=== PATIENT | female | born 1980 | race Two or more races ===

== ENCOUNTER 2022-02-11 12:14 | Emergency (ER) | payer OTHER ==
[~2022-02-11] VITALS: Ht 167.6 cm; Wt 83.9 kg
[2022-02-11] MEDS ORDERED: LEVOXYL175 MCG PO (12:38)
[2022-02-11] MEDS ORDERED: ZITHROMAX500 MG PO (17:26)
[2022-02-11] MEDS ORDERED: BENZONATATE200 M1 PO (17:28)
[2022-02-11] MEDS ORDERED: PROAIR RESPICL90 MCG IH (17:28)
== END 2022-02-11 18:06 | disposition home or self-care (01) ==
LOC: ER 12:14
DX: J20.9 Acute bronchitis, unspecified (principal); Z20.822 Contact with and (suspected) exposure to COVID-19

== ENCOUNTER → 2022-09-27 | Emergency (ER) | payer OTHER ==
[~2022-09-27] VITALS: Ht 167.6 cm; Wt 83.0 kg
[~2022-09-27] MED LIST: BENZONATATE200 M1 PO; LEVOXYL175 MCG PO; PROAIR RESPICL90 MCG IH; ZITHROMAX500 MG PO
== END | disposition home or self-care (01) ==
LOC: ER 23:35
DX: J06.9 Acute upper respiratory infection, unspecified (principal); Z20.822 Contact with and (suspected) exposure to COVID-19

== ENCOUNTER 2022-09-30 17:28 | Emergency (ER) | payer OTHER ==
[~2022-09-30] VITALS: Ht 167.6 cm; Wt 82.6 kg
== END 2022-09-30 19:44 | disposition home or self-care (01) ==
LOC: ER 17:28
DX: J06.9 Acute upper respiratory infection, unspecified (principal); E03.9 Hypothyroidism, unspecified

== ENCOUNTER 2022-12-31 09:38 | Emergency (ER) | payer OTHER ==
[~2022-12-31] VITALS: Ht 167.6 cm; Wt 82.6 kg
[2022-12-31] MEDS ORDERED: FLONASE ALLERG9.9 ML (10:16)
[2022-12-31 11:50] LABS: HEMATOCRIT 30.7 % (36.0-45.00); HEMOGLOBIN 9.5 g/dL (12.0-15.00); MEAN CORPUSCULAR HEMOGLOBIN 19.2 pg (27.00-32.0); MEAN CORPUSCULAR HGB CONC 30.9 g/dl (32.0-36.0); PLATELET COUNT 378 K/uL (150-450); RED BLOOD COUNT 4.95 M/uL (4.00-6.00); RED CELL DISTRIBUTION WIDTH 19.7 % (11.5-14.5)
[2022-12-31] MEDS ORDERED: TUSNEL LIQUID178 ML PO (12:36)
[2022-12-31] MEDS ORDERED: OSEL75CA PO (12:36)
[2022-12-31] MEDS ORDERED: DOLOGEN CAPLET1 EACH PO (12:36)
== END 2022-12-31 12:47 | disposition home or self-care (01) ==
LOC: ER 09:38
PROVIDERS: General Practice
DX: J09.X2 Influenza due to identified novel influenza A virus with other respiratory manifestations (principal)

== ENCOUNTER 2024-05-25 22:14 | Inpatient (IN) | payer OTHER ==
[~2024-05-25] VITALS: Ht 167.6 cm; Wt 85.7 kg
[~2024-05-25 22:14] MED LIST changes: +DOLOGEN CAPLET1 EACH PO; +FLONASE ALLERG9.9 ML; +OSEL75CA PO; +TUSNEL LIQUID178 ML PO
--- NOTE | 2024-05-25 22:33 | NUR ---
SE RECIBE PTE ALERTA Y ORIENTADA X3. REFIERE VENIR POR HGB EN 6.0. SE MIDE SV Y SE UBICA
--- NOTE | 2024-05-26 00:23 | NUR ---
PTE ALERTA Y ORIENTADA X3, SE EDUCA SOBRE TX MEDICO Y REFIERE ACEPTAR. SE EJECUTAN ORDENES MEDICAS EN HAMM TOTALIDAD.
[2024-05-26 00:35] LABS: ALBUMIN 3.6 gm/dL (3.4-5.0); BILIRUBIN TOTAL 0.26 mg/dL (0.3-1.2); CALCIUM 8.5 mg/dL (8.5-10.1); CREATININE SERUM 0.87 mg/dL (0.55-1.02); GFR 70.41; GLOBULINA 3.6 G/DL (2.4-3.5); POTASSIUM 3.53 mEq/L (3.5-5.1); TOTAL PROTEIN 7.2 gm/dL (6.4-8.2)
[2024-05-26 00:37] LABS: MEAN CORPUSCULAR HGB CONC 29.5 g/dl (32.0-36.0); PLATELET COUNT 342 K/uL (150-450); RED BLOOD COUNT 4.26 M/uL (4.00-6.00); RED CELL DISTRIBUTION WIDTH 21.4 % (11.5-14.5)
[2024-05-26 00:38] LABS: HEMATOCRIT 23.3 % (36.0-45.00); INR 0.96; MEAN CELL VOLUME 54.8 fL (80.00-100.00); MEAN CORPUSCULAR HEMOGLOBIN 16.1 pg (27.00-32.0); PARTIAL THROMBOPLASTIN TIME 25.1 SECONDS (22.0-34.0); PROTHROMBIN TIME 10.5 SECONDS (9.0-11.5)
[2024-05-26 00:39] LABS: HEMOGLOBIN 6.9 g/dL (12.0-15.00)
[2024-05-26] MEDS ORDERED: 0.9 % SODIUM CHLORIDE 1,000 ML IV ONE (03:30)
--- NOTE | 2024-05-26 05:48 | NUR ---
SE REQUISAN #2 UNIDADES PRBC'S ORDENADAS POR . SE CORROBORA FECHA DE NACIMIENTO CORRECTA Y NOMBRE CORRECTO CON PACIENTE. SE COLOCA COPIA DE REQUISICION JUNTO CON CONSENTIMIENTO EN EXPEDIENTE DE PACIENTE Y SE ENTREGA REQUISICION A DE LABORATORIO QUIEN REFIERE TODO ESTA CORRECTO. PTE BAJO OBSERVACION.
[2024-05-26] MEDS ORDERED: 0.9 % SODIUM CHLORIDE 1,000 ML IV SCH (10:15)
[2024-05-26 16:50] VITALS: BP 127/75; O2SAT 100
[2024-05-27 00:55] LABS: HEMATOCRIT 30.1 % (36.0-45.00); MEAN CORPUSCULAR HGB CONC 30.7 g/dl (32.0-36.0); PLATELET COUNT 283 K/uL (150-450); RED BLOOD COUNT 4.89 M/uL (4.00-6.00)
[2024-05-27 00:56] VITALS: BP 100/60; O2SAT 98
[2024-05-27 00:58] LABS: HEMOGLOBIN 9.3 g/dL (12.0-15.00); MEAN CELL VOLUME 61.7 fL (80.00-100.00); RED CELL DISTRIBUTION WIDTH 30.8 % (11.5-14.5)
[2024-05-27] MEDS ORDERED: LEVOTHYROXINE SODIUM 112 MCG TABLET PO SCH (06:00)
[2024-05-27] MEDS ORDERED: PANTOPRAZOLE SODIUM 40 MG/VIAL VIAL IV SCH (09:00)
[2024-05-27 09:22] VITALS: BP 133/85; O2SAT 100
[2024-05-27 16:27] LABS: ob NEGATIVE (NEGATIVE)
[2024-05-28 00:54] VITALS: BP 114/68; O2SAT 100
[2024-05-28] MEDS ORDERED: LEVOTHYROXINE SODIUM 112 MCG TABLET PO SCH ×2 (06:00)
[2024-05-28 07:33] LABS: HEMOGLOBIN 9.9 g/dL (12.0-15.00); MEAN CORPUSCULAR HEMOGLOBIN 19.1 pg (27.00-32.0); PLATELET COUNT 272 K/uL (150-450); RED BLOOD COUNT 5.17 M/uL (4.00-6.00)
[2024-05-28 07:56] LABS: MEAN CELL VOLUME 61.8 fL (80.00-100.00); RED CELL DISTRIBUTION WIDTH 30.9 % (11.5-14.5)
[2024-05-28 09:37] VITALS: BP 97/61; O2SAT 99
[2024-05-29] MEDS ORDERED: LEVOTHYROXINE SODIUM 137 MCG TABLET PO SCH (06:00)
== END 2024-05-28 10:40 | disposition home or self-care (01) | DRG 812 ==
LOC: ER 22:16 → SEC-K 05-26 12:44 → MEDI 05-26 12:44
PROVIDERS: General Practice; ADMIT Student in an Organized Health Care Education/Training Program; ATTEND Student in an Organized Health Care Education/Training Program
PROC: 30233N1 Transfusion of Nonautologous Red Blood Cells into Peripheral Vein, Percutaneous Approach (ICD-10-PCS; principal; 2024-05-26)
DX: D64.9 Anemia, unspecified (principal)